=== PATIENT | female | born 1955 | race Caucasian/White ===

== ENCOUNTER 2025-03-29 21:55 | Inpatient (IN) | payer MEDICARE, OTHER, SELFPAY ==
[2025-03-29 16:13] VITALS: BP 121/90
[2025-03-29 16:37] LABS: Urine Albumin 3+ (Neg - Trace); Urine Bilirubin Negative (Negative); Urine Character Clear (Clear); Urine Color Yellow; Urine Glucose Negative (Negative); Urine Ketone 1+ (Negative); Urine Leukocyte 3+ (Negative); Urine Nitrite Positive (Negative); Urine Occult Blood 4+ (Negative); Urine Urobilinogen Negative (Neg - 1+); Urine pH 6.5 (5.0-9.0)
[2025-03-29 16:44] LABS: Urine Squamous Cell 0-2 /LPF (Few)
[2025-03-29 16:45] LABS: Urine Amorphous Seen; Urine Bacteria Many (Negative); Urine White Cell >100 /HPF (0-5)
[2025-03-29 16:50] LABS: Lactic Acid 1.2 mmol/L (0.7-2.0)
[2025-03-29 16:58] LABS: ALT (SGPT) 23 U/L (0-35); AST (SGOT) 36 U/L (14-36); Albumin 3.6 g/dl (3.5-5.0); Alkaline Phosphatase 59 U/L (38-126); Blood Urea Nitrogen 46 mg/dl (7-17); Calcium 9.1 mg/dl (8.4-10.2); Carbon Dioxide 21 mmol/L (22-30); Chloride 104 mmol/L (98-107); Glucose 132 mg/dl (70-99); Potassium 3.7 mmol/L (3.5-5.1); Sodium 133 mmol/L (135-145); Total Bilirubin 0.7 mg/dl (0.2-1.3); Total Protein 6.3 g/dl (6.3-8.2); eGFR 37.03
[2025-03-29 17:01] LABS: Hemoglobin 10.6 g/dL (12.0-16.0); Mean Corp Hgb Conc. 35.3 g/dL (33.0-37.0); Mean Corpuscular Hgb 34.2 pg (27.0-31.0); Mean Corpuscular Volume 96.8 fL (81.0-99.0); Mean Platelet Volume 10.6 fL (7.4-10.4); Platelet Count 135 10^3/uL (130-400); Red Cell Dist. Width 13.2 % (11.5-14.5); White Blood Cell Count 26.4 10^3/uL (4.8-10.8)
[2025-03-29 17:06] LABS: % Basophils 0.3 % (0-2); % Immature Granulocytes 3.1 % (0-0.5); % Lymphocytes 7.2 % (20.5-51.1); % Monocytes 6.5 % (1.7-9.3); % Neutrophils 82.9 % (42.2-75.2); Absolute Basophils 0.1 10^3/uL (0-0.2); Absolute Immature Granulocytes 0.8 10^3/uL (0-0.05); Absolute Lymphocytes 1.9 10^3/uL (1.2-3.4); Absolute Monocytes 1.7 10^3/uL (0.1-0.6); Absolute Neutrophils 21.8 10^3/uL (1.4-6.5); Nucleated Red Blood Cells % 0 %
[2025-03-29 18:09] VITALS: BP 97/55
[2025-03-29 18:14] VITALS: BMI 29.0
[2025-03-29] MEDS: ROCEPHIN 1000 MG IV (18:17)
[2025-03-29] MEDS: TYLENOL 1000 MG PO (18:17)
[2025-03-29] MEDS: NSS 1000 IV (18:18)
[2025-03-29 19:00] VITALS: BP 92/60
--- NOTE | 2025-03-29 19:27 | ED.GENMED ---
History of Present Illness
General
Chief Complaint: Dehydration Symptoms
Source: patient
Exam Limitations: none
Time Seen by Provider: 03/29/25 18:01
Nursing documentation reviewed up to this point in time: agreed with
History of Present Illness
History of Present Illness:
The patient is a pleasant 69-year-old female with a past medical history of RA who comes in with complaints of 3 days of fevers and chills. Patient reports intermittent nausea and vomiting. Since yesterday, she has noticed 'pain at her right
kidney.' she denies any history of kidney stones. She denies a history of recent UTIs. She denies a history of stabbing back pain
She denies sore throat and cough. She denies rash.
Past History
Past History
ED Past Medical History: Other (RA); Negative Asthma, HTN, Hypercholesterolemia or NIDDM
ED Past Surgical History: None
Social History
Tobacco: Non-smoker
Alcohol: None
Personal:
Living: with family
Employment: Employed
Review of Systems
Review of Systems
Allergies reviewed?: Yes
All Other Systems: ROS reviewed and negative except as documented in HPI and ROS
Constitutional: Reports fever, fatigue and chills
EENT: Reports no symptoms
Respiratory: Reports no symptoms
Cardiac: Reports no symptoms
ABD/GI: Reports no symptoms
: Reports flank pain
Musculoskeletal: Reports no symptoms
Skin: Reports no symptoms
Neurological: Reports no symptoms
Endocrine: Reports no symptoms
Hematologic/Lymphatic: Reports no symptoms
Psychiatric: Reports no symptoms
Phy Exam
Physical Exam
Physical Exam:
Physical Exam
General: no apparent distress, not acutely ill
Neck: supple. no meningeal signs. normal psoterior pharynx
Heart: s1/s2 regular rate and rhythm, no murmur. equal radial pulses.
Lungs: no acute respiratory distress. clear bilaterally
Abdomen: normal bowel sounds. Right flank pain
Neuro: alert and oriented. no focal neurological deficits
Skin: no rash
Psychiatric: well kept. interactive and cooperative
Extremities: no edema. no calf tenderness. negative homans. good distal pulses
Sepsis
Sepsis Screening
Sepsis Assessment: Sepsis
Sepsis Screen
Sepsis Screen: Sepsis
Date: 03/29/25
Time: 22:16
Course
Orders/Labs/Results
Orders:
Orders
03/29/25 16:15
IV Insert/Care/Rem.- Treatment PRN
03/29/25 16:27
Complete Blood Count/With Diff Urgent
Comprehensive Metabolic Panel Urgent
Blood Culture Q20M
ANG Source: Blood/Venous
Specimen Description:
Date Specimen was Collected: 03/29/25
Time Specimen was Collected: 16:15
Comment: Urgent from separate sites. If patient screens positive for possible sepsis
03/29/25 16:29
Lactic Acid Q4H
Comment: ON ICE, CANCEL 2ND ORDER IF FIRST LACTIC ACID LEVEL <2
Urinalysis Reflex To Culture Urgent
Date Specimen was Collected: 03/29/25
Time Specimen was Collected: 16:15
Urine Microscopic Reflex Cult Urgent
Urine Culture Urgent
ANG Source: U
Specimen Description:
Date Specimen was Collected: 03/29/25
Time Specimen was Collected: 16:15
03/29/25 16:35
Blood Culture Q20M
ANG Source: Blood/Venous
Specimen Description:
Comment: Urgent from separate sites. If patient screens positive for possible sepsis
03/29/25 18:07
0.9% Sodium Chloride 1000 ml [Nss] 1,000 ml IV BOLUS
Acetaminophen [Tylenol] 1,000 mg PO NOW STA
CefTRIAXone [Rocephin] 1,000 mg IV NOW STA
03/29/25 18:08
CT Abd/pel Without Iv Or Oral Urgent
Comment:
Reason For Exam: fever, R flank pain
03/29/25 21:12
Admit/Transfer Patient As Directed
Co-Sign Provider:
Level of Care: Inpatient admission
Assign to:: IMU- Intermediate Care
Physician / Group: Eamon
Diagnosis: UTI, Nephrolithiasis
Reason for Hospitalization: UTI, Nephrolithiasis
Expected length of stay greater than two midnights?: Yes
ELOS- Estimated Length of Stay in days: 3
I certify the patient meets the requirements for IP care: Yes
PRN Pain Medication Management As Directed
May give lesser potent ordered pain med per pt: Yes
preference::
Protocol:: Medication orders for pain may be administered in a
manner that supports deferring to patient preference
when the pt is:
- Requesting an ordered lesser potent pain medication.
Least to most potent pain medications are defined
as: acetaminophen < NSAID < tramadol < opioids
(morphine, oxycodone, hydromorphone).
- Requesting a lesser dose of the same medication IF
ORDERED.
- Requesting a less intrusive route of administration
if both routes are prescribed by the provider (PO <
IV).
03/29/25 21:16
Code Status As Directed
Resuscitation Status: Full Code
03/29/25 21:22
PRN Pain Medication Management As Directed
May give lesser potent ordered pain med per pt: Yes
preference::
Protocol:: Medication orders for pain may be administered in a
manner that supports deferring to patient preference
when the pt is:
- Requesting an ordered lesser potent pain medication.
Least to most potent pain medications are defined
as: acetaminophen < NSAID < tramadol < opioids
(morphine, oxycodone, hydromorphone).
- Requesting a lesser dose of the same medication IF
ORDERED.
- Requesting a less intrusive route of administration
if both routes are prescribed by the provider (PO <
IV).
Abnormal Lab Results
03/29/25 03/29/25
16:27 16:29
WBC 26.4 H 10^3/uL
(4.8-10.8)
RBC 3.10 L 10^6/uL
(4.20-5.40)
Hgb 10.6 L g/dL
(12.0-16.0)
Hct 30.0 L %
(37.0-47.0)
MCH 34.2 H pg
(27.0-31.0)
MPV 10.6 H fL
(7.4-10.4)
Abs Immat Gran (auto) 0.8 H 10^3/uL
(0-0.05)
Absolute Neuts (auto) 21.8 H 10^3/uL
(1.4-6.5)
Absolute Monos (auto) 1.7 H 10^3/uL
(0.1-0.6)
Immature Gran % 3.1 H %
(0-0.5)
Neutrophils % 82.9 H %
(42.2-75.2)
Lymphocytes % 7.2 L %
(20.5-51.1)
Sodium 133 L mmol/L
(135-145)
Carbon Dioxide 21 L mmol/L
(22-30)
BUN 46 H mg/dl
(7-17)
Creatinine 1.5 H mg/dL
(0.6-1.0)
Glucose 132 H mg/dl
(70-99)
Urine Ketones 1+ A
(Negative)
Ur Occult Blood Reflex 4+ A
(Negative)
Urine Nitrite (Reflex) Positive A
(Negative)
Leukocyte Esterase Rfl 3+ A
(Negative)
Urine RBC 3-6 A /HPF
(0-2)
Urine WBC (Reflex) >100 A /HPF
(0-5)
Urine Bacteria (Reflex) Many A
(Negative)
Urine Albumin (Reflex) 3+ A
(Neg - Trace)
03/29/25 16:27
03/29/25 16:27
Vital Signs
Initial and Last Documented VS:
Initial Vital Signs
Temp Pulse Resp BP Pulse Ox
100.1 F 92 18 121/90 91
03/29/25 16:13 03/29/25 16:13 03/29/25 16:13 03/29/25 16:13 03/29/25 16:13
Last Documented Vital Signs
Temp Pulse Resp BP Pulse Ox
98.5 F 78 16 105/78 96
03/29/25 21:33 03/29/25 18:15 03/29/25 18:15 03/29/25 21:00 03/29/25 21:00
MDM/Problems Addressed
Differential Diagnosis Includes:
Pyelonephritis. Infected kidney stone, pneumonia
MDM/Problems Addressed:
Patient presents with acute fever and right flank pain
Chronic conditions affecting care:
Rheumatoid arthritis
Acute Exacerbation and/or Progression of Chronic Illness:
The patient denies any joint pain or joint swelling, therefore, I feel her rheumatoid arthritis is under control.
*Radiology
Radiology exam reviewed: radiology read reviewed
*Pulse Oximetry
Patient hypoxic: no
Comment: 93% on room air
*EKG
Interpreted by ED Provider?: NA
*[employer] Merch[employer] Interpretation
Rate: normal
Interpretation: normal
Rhythm: sinus
*Critical Care Note
Total Time (30-74mins, 75-104mins- exclusive of procedures): Not Applicable
Data Reviewed
Review of Other/Old Records Reveals: Discharge Summary (Discharge summary reviewed from 2019 when patient had pneumonia and sepsis)
Source: patient
ED Attending Note
-
Portions of this chart may have been created with voice recognition software.� Occasional wrong word or��sound alike� substitutions may have occurred due to the inherent limitations of voice recognition software.
Discharge Plan
Departure
Patient Disposition: Admit
Date of Disposition: 03/29/25
Time of Disposition: 19:31
Admit to: Med/Surg
Presentation/result/management discussed w/ accepting MD/DO: Hospitalist
Patient with high blood pressure during this ER visit?: No
Condition: Good
Covid-19: Not Applicable
Discharge Problem:
Fever, Right sided pyelonephritis, Calculus of right ureter
Interventions
Interventions:
*Risk Screen - Suicide Last Done: 03/29/25 18:15
*General Assessment Last Done: 03/29/25 18:15
*Neglect/Abuse Screening Last Done: 03/29/25 18:15
*ED- Fall Risk Assessment Last Done: 03/29/25 18:15
*ED COVID-19 Vaccine History Last Done: 03/29/25 18:15
ED- Cardiac Assessment Last Done: 03/29/25 18:15
ED- Neurological Assessment Last Done: 03/29/25 18:15
ED- Pulmonary Assessment Last Done: 03/29/25 18:15
[2025-03-29 20:00] VITALS: BP 96/53
[2025-03-29 21:00] VITALS: BP 105/78
--- NOTE | 2025-03-29 21:13 | EDRN ---
Dr. Knutson at bedside working on admission
--- NOTE | 2025-03-29 21:19 | HPS.HSE ---
Family Physician
-
Family Physician: Pramod Banegas
Chief Complaint
-
Chills, Flank Pain
History of Present Illness
Patient is a 69y F with PMH significant for RA and asthma who presents to ED complaining of chills and R flank pain. Patient states that her symptoms started Jason evening. She noted shaking feeling / tremulousness - though she denies feeling
cold. She had discomfort in the R 'kidney' and associated nausea / vomiting. Patient has remained in bed since Sunday evening. She has been trying to push oral fluids - but has not been eating well. She reports some urinary urgency but no
dysuria / incontinence. No noted hematuria. No diarrhea / blood stools. No prior history of kidney stones.
Medical History
Past Medical History
Past Medical History: Reports Other
Additional Past Medical History:
Rheumatoid Arthritis
Asthma
Past Surgical History: Reports Other
Additional Past Surgical History:
x 2
Appendectomy
Social History
Tobacco: Former Smoker (Quit smoking 50 years ago.)
Alcohol: None
Drug: None
Family History
Family History: Not pertinent
Allergies / Home Medications
Allergies reflects when Allergies were last updated in [facility].
Home Medications with original date entered in [facility]
Allergy/Medication List:
Allergies
Allergy/AdvReac Type Severity Reaction Status Date / Time
No Known Allergies Allergy Verified 09/27/19 12:06
Home Medications
Acidophilus 1,200 units PO TID 08/26/12
Ophelia-D 12 Hour Tablet 1 tab PO BID 08/26/12
B Complex 1 tab PO HS 08/26/12
Black Patrick Supplement 1 cap PO DAILY 08/26/12
Bromolin 1 tab PO TID 08/26/12
Centrum Silver Tablet 1 tab PO DAILY 08/26/12
FOLic ACID 1 mg PO DAILY 08/26/12
MELOXICAM 15 mg PO DAILY 08/26/12
Proventil 90 mcg inhalation PRN PRN dyspnea 08/26/12
Singulair 10 mg PO DAILY 08/26/12
budesonide-formoterol HFA 80 mcg-4.5 mcg/actuation aerosol inhaler (Symbicort) 2 puff inhalation R BID 08/26/12
infliximab 100 mg intravenous solution (Remicade) 100 mg IV .EVERY 6 WKS 09/27/19
METHOTREXATE 75 mg PO WEEKLY 03/29/25
Review of Systems
-
History Source: Patient
A 12 point ROS was completed and negative except as noted: Yes
Constitutional: Reports Fatigue and Chills (shakes / tremors); Denies Fever
EENT: Denies Sore Throat
Respiratory: Denies Cough or Trouble Breathing
Cardiac: Denies Chest Pain or Palpitations
Abdomen/GI: Reports Nausea, Vomiting and Anorexia; Denies Abdominal Pain, Diarrhea, Bloody Stools or Black Stools
: Reports Flank Pain and Urgency; Denies Dysuria, Frequency or Bleeding
Musculoskeletal: Denies Joint Pain or Edema
Neurological: Denies Dizzy or Headache
Psych: Denies Depression or Anxiety
Physical Exam
Vital Signs
Vital Signs
Temp Pulse Resp BP Pulse Ox
100.1 F 78 16 105/78 96
03/29/25 16:13 03/29/25 18:15 03/29/25 18:15 03/29/25 21:00 03/29/25 21:00
Physical Exam
General: Other (69y F in no acute distress. Not ill-appearing.)
HEENT: Moist mucous membranes and PERRLA
Respiratory: Clear; No Wheezes, Rales or Rhonchi
Cardiac: S1/S2 and Regular Rhythm; No Murmur
GI: Soft, Non Tender, Non Distended and Normal Bowel Sounds
Genito-urinary: No costovertebral tender
Musculoskeletal: No Clubbing, No Cyanosis and No Edema
Neuro: AO x 3
Laboratory Results
-
03/29/25 16:27
03/29/25 16:
Laboratory Results
Lactic Acid Cancelled 03/29/25 20:15
Total Bilirubin 0.7 mg/dl (0.2-1.3) 03/29/25 16:
AST 36 U/L (14-36) 03/29/25 16:27
ALT 23 U/L (0-35) 03/29/25 16:27
Alkaline Phosphatase 59 U/L (38-126) 03/29/25 16:27
Impression/Plan
-
A/P: Patient is a 69y F with PMH significant for RA and asthma who presents to ED complaining of shakes and flank pain since Sunday.
UTI / Pyelonephritis
Sepsis secondary to the above
R UVJ Stone with Hydronephrosis
- Admit for further evaluation and treatment.
- Patient presents with tachycardia and leukocytosis with UA indicative of infection.
- Very distal 3 mm stone on the R - no prior history per patient.
- Continue IV abx pending culture data.
- Tamsulosin, strain urine, pain control if necessary (no complaints of pain at present).
- Supportive care with IVFs, antiemetics, etc.
- Urology consulted for evaluation of UVJ stone.
Rheumatoid Arthritis
- Stable. No acute complaints at present.
- Patient cannot recall timing of her last Remicade infusion.
- Hold immunosuppressants acutely (Remicade / MTX).
Asthma without Acute Exacerbation
- Stable. Continue Symbicort. Albuterol PRN.
DVT Prophylaxis: SCDs
Code Status: Full
--- NOTE | 2025-03-29 21:52 | CON.MD ---
Consultation - Medical
-
see dictated note
pt with RA
no gu hx
72hrs of fatigue and flank pain- now with fevers and nausea
wbc elevated/ ua +/ ct shows obstructing right uvj stone
to OR for stent/ureteroscopy
risks, benefits, alternatives and disabilities reviewed
Consultation
-
Date/Time Consultation Requested: 03/29/2025 at 915 pm
Date/Time Consultation Performed: 03/29/2025 at 930 pm
Requesting Provider: ER- dr arrieta
Performing Provider: dr charles
Reason for Consultation: fever/UTI/stone
[2025-03-29 22:00] VITALS: BP 104/53
--- NOTE | 2025-03-29 22:05 | EDRN ---
Patient ambulated to the restroom and back in bed, updated patient to inform her that she will go to the OR first and then to IMU, report given to IMU nurse
[2025-03-30] VITALS (12 sets, daily range): BP systolic 98–151; BP diastolic 53–109
--- NOTE | 2025-03-30 00:28 | W.IMMPOSTOP ---
Surgical Immed Post Op Note
-
Primary Surgeon:
melvin
Assisting Surgeon:
Pre-op Diagnosis:
right ureteral stone and UTI
Post-op Diagnosis:
same
Procedure Performed:
cysto, right ureteroscopy/laser litho and stent
Anesthesia Type:
gen
Specimen / Cultures:
none
Estimated Blood Loss:
2cc
Complications:
none
Operative Findings:
to pacu in stable condition
[2025-03-30] MEDS: NSS 1000 IV ×3 (01:30→16:22)
--- NOTE | 2025-03-30 05:57 | W.PN.URO.CBU ---
Today's Communication / Plan
-
continue supportive medical care
Assessment / Plan
-
right ureteral stone and UTI
s/p ureteroscopy/laser litho and stent
pt stable
fortunately at this point no overt signs of sepsis
continue antibx
regular diet
continue curran until hematuria clears
Diagnosis
-
Date of Service: March 30, 2025
-
Patient Diagnosis:
obstructing right ureteral stone
UTI
Post Op Day:
right ureteroscopy/laser litho and stent 03/30
Subjective
-
pt asleep
no fevers or HD instability overnight
Objective
-
Vital Signs
Temp Pulse Resp BP Pulse Ox
98.0 F 68 16 100/58 95
03/30/25 03:30 03/30/25 04:01 03/30/25 04:01 03/30/25 04:01 03/30/25 04:01
Intake and Output
03/28/25 03/29/25 03/30/25
06:59 06:59 06:59
Intake Total 400 / 400
Output Total 50 / 50
Balance 350 / 350
Intake:
IV fluids (Total) 400 / 400
Normosol 400 / 400
Output:
Urine, Curran 50 / 50
Physical Exam
-
General - no acute distress
Abdomen - soft, non-tender
Genitalia - curran in place- urine davis colored
[2025-03-30 06:38] LABS: Hematocrit 26.9 % (37.0-47.0); Hemoglobin 9.6 g/dL (12.0-16.0); Mean Corp Hgb Conc. 35.7 g/dL (33.0-37.0); Mean Corpuscular Hgb 35.4 pg (27.0-31.0); Mean Corpuscular Volume 99.3 fL (81.0-99.0); Mean Platelet Volume 10.9 fL (7.4-10.4); Platelet Count 103 10^3/uL (130-400); Red Blood Cell Count 2.71 10^6/uL (4.20-5.40); Red Cell Dist. Width 13.5 % (11.5-14.5)
[2025-03-30 06:48] LABS: Blood Urea Nitrogen 41 mg/dl (7-17); Calcium 7.8 mg/dl (8.4-10.2); Carbon Dioxide 20 mmol/L (22-30); Chloride 112 mmol/L (98-107); Estimated Creatinine Clearance 34 ml/min; Glucose 137 mg/dl (70-99); Potassium 4.2 mmol/L (3.5-5.1); Sodium 137 mmol/L (135-145); eGFR 48.39
--- NOTE | 2025-03-30 08:04 | W.PN.HOSP.TC ---
Today's Communication/Plan
-
Bacteremia -- continue Cefepime
See plan
Assessment / Plan
Assessment / Plan
Physical Exam
General: Other (69y F in no acute distress. Not ill-appearing.)
HEENT: Moist mucous membranes
Respiratory: Clear; No Wheezes, Rales or Rhonchi
Cardiac: S1/S2 and Regular Rhythm
GI: Soft, Non Tender, Non Distended and Normal Bowel Sounds
Genito-urinary: No costovertebral tender
Musculoskeletal: No Cyanosis and No Edema
Neuro: AO x 3
Assessment/Plan
69y F with PMH significant for RA and asthma who presents to ED complaining of chills and R flank pain. Patient states that her symptoms started Sunday evening. She noted shaking feeling / tremulousness - though she denies feeling cold. She
had discomfort in the R 'kidney' and associated nausea / vomiting. Patient has remained in bed since Sunday evening. She has been trying to push oral fluids - but has not been eating well. She reports some urinary urgency but no dysuria /
incontinence. No noted hematuria. No diarrhea / blood stools. No prior history of kidney stones.
Presentation with shakes and flank pain since 03/27/25
UTI / Pyelonephritis
Sepsis secondary to the above
R UVJ Stone with Hydronephrosis
Bacteremia
- Patient presented with tachycardia and leukocytosis with UA indicative of infection.
- Very distal 3 mm stone on the R - no prior history per patient.
- Continue Cefepime, follow blood cultures which are positive so far
- Urology consulted for evaluation of UVJ stone s/p ureteroscopy/laser litho and stent placement on 03/29/25
Rheumatoid Arthritis
- Stable. No acute complaints at present.
- Patient cannot recall timing of her last Remicade infusion.
- Hold immunosuppressants acutely (Remicade / MTX).
Asthma without Acute Exacerbation
- Stable. Continue Symbicort. Albuterol PRN.
DVT Prophylaxis: SCDs. Heparin subq.
Code Status: Full
Anticipated Discharge: > 48 hours
Subjective/Interval History
-
Date of Service: March 30, 2025
Patient was seen and examined. She reported feeling better and less weak today.
Objective Data
-
Labs:
Laboratory Results
03/30/25
06:10
WBC 21.0 H
Hgb 9.6 L
Hct 26.9 L
Plt Count 103 L D
Sodium 137
Potassium 4.2
Chloride 112 H
Carbon Dioxide 20 L
BUN 41 H
Creatinine 1.2 H
Glucose 137 H
Calcium 7.8 L
Vital Signs:
Vital Signs
Temp Pulse Resp BP Pulse Ox
98.4 F 68 16 100/58 95
03/30/25 07:57 03/30/25 04:01 03/30/25 04:01 03/30/25 04:01 03/30/25 04:01
I&O
03/29/25 03/30/25 03/31/25
06:59 06:59 06:59
Intake Total 400 / 400
Output Total 50 / 50
Balance 350 / 350
[2025-03-30] MEDS: FOLVITE 1 MG PO (08:28)
[2025-03-30] MEDS: SINGULAIR 10 MG PO (08:28)
[2025-03-30] MEDS: FLOMAX 0.4 MG PO (08:28)
--- NOTE | 2025-03-30 08:48 | PTCARENOTE ---
Pt AAOx3 offering no complaints. States she feels much better. NSS 125hr , Penn in place draining brittany urine.
[2025-03-30] MEDS: MAXIPIME 2000 MG IV ×2 (09:52→21:09)
[2025-03-30] MEDS: STERILE WATER FOR INJECTION 10 ML IV ×2 (09:52→21:09)
--- NOTE | 2025-03-30 09:59 | CON.ID ---
Consultation
-
Date/Time Consultation Requested: 03/30/2025 0835
Date/Time Consultation Performed: 03/30/2025 0956
Requesting Provider: Dr. Montana
Performing Provider: Dr. Main
Reason for Consultation: Bacteremia
Chief Complaint / Past History
History of Present Illness
Brooke King is a 69-year-old female being evaluated at the request of Dr. Montana regarding bacteremia and obstructive uropathy. History is obtained from chart review, along with patient interview.
The patient has a significant past medical history only for rheumatoid arthritis and presented to [facility] ER on 03/29 with complaints of right flank pain and chills beginning approximately 48 hours earlier. She admits to shaking and
feeling tremulousness. She reports that she tried to push fluids, but was having a difficult time. She states she stayed in bed for most of the weekend, but ultimately she came to the hospital for further workup when she did not begin to feel
better. Here she was found to have a marked leukocytosis, and CT imaging hydronephrosis secondary to a 3 mm right UVJ stone. The patient was taken to the OR by Urology, and she underwent ureteroscopy and laser lithotripsy with stent placement.
Blood cultures obtained at the time of admission are now positive for gram-negative rods, and Infectious Diseases asked to comment on further antimicrobial therapy.
At the present time she denies any fevers or chills. She denies any back pain or flank pain. She denies any dysuria
Past History
Additional Past Medical History:
Rheumatoid arthritis
Asthma
Additional Past Surgical History:
x 2
Appendectomy
Allergy History:
No Known Allergies Allergy (Verified 09/27/19 12:06)
Medications Reviewed: Yes
Current Antibiotics:
Cefepime 2 g IV every 12 hours
Ceftriaxone discontinued
Social History
Tobacco: Former Smoker (Remote)
Alcohol: None
Drug: None
Review of Systems
Vital Signs
Temp Pulse Resp BP Pulse Ox
98.4 F 68 16 100/58 95
03/30/25 07:57 03/30/25 04:01 03/30/25 04:01 03/30/25 04:01 03/30/25 04:01
Physical Exam
Physical Exam
Constitutional: No Acute Distress, Comfortable and Non-toxic
Eyes: No Conjunctival Hemorrhage and Sclera Anicteric
Cardiovascular: Regular Rate and S1/S2; Negative S3/S4
Pulmonary: Clear and Non Labored
Gastrointestinal: Soft, Non Tender, Non Distended and Normal Bowel Sounds
Genito-Urinary: Penn, Turbid Urine (Slightly cloudy) and Hematuria (Trace)
Extremities: Negative Edema, Cyanosis or Erythema
Neurological: Awake and Alert
Psychological: Calm
.
Lab / Diagnostic Study Results
03/30/25 06:10
03/30/25 06:10
Abs Immat Gran (auto) 0.8 10^3/uL (0-0.05) H 03/29/25 16:27
Absolute Neuts (auto) 21.8 10^3/uL (1.4-6.5) H 03/29/25 16:27
Absolute Lymphs (auto) 1.9 10^3/uL (1.2-3.4) 03/29/25 16:27
Absolute Monos (auto) 1.7 10^3/uL (0.1-0.6) H 03/29/25 16:27
Absolute Basos (auto) 0.1 10^3/uL (0-0.2) 03/29/25 16:27
Immature Gran % 3.1 % (0-0.5) H 03/29/25 16:27
Neutrophils % 82.9 % (42.2-75.2) H 03/29/25 16:27
Lymphocytes % 7.2 % (20.5-51.1) L 03/29/25 16:27
Monocytes % 6.5 % (1.7-9.3) 03/29/25 16:27
Eosinophils % 0.0 % (0-6) 03/29/25 16:27
Basophils % 0.3 % (0-2) 03/29/25 16:27
Lactic Acid Cancelled 03/29/25 20:15
Ur Squamous Epith Cells 0-2 /LPF (Few) 03/29/25 16:29
Microbiology Results
Micro:
03/30/25 09:50 Blood Culture - Pending
Blood/Venous
03/30/25 09:09 Blood Culture - Pending
Blood/Venous
03/29/25 16:27 Blood Culture - Preliminary
Blood/Venous Positive culture in progress
Gram Stain - Final
03/29/25 16:29 Urine Culture - Pending
Urine
Imaging:
03/29/2025 CT abdomen/pelvis without contrast: The unenhanced liver, spleen, gallbladder and pancreas are unremarkable. The adrenal glands and kidneys are unremarkable aside from mild right hydronephrosis due to a right UVJ stone measuring 3 mm.
There is also a 1 mm nonobstructing right renal stone.. The abdominal aorta is normal caliber. There is mild atherosclerotic vascular disease. No significant lymphadenopathy is noted. Bowel loops are normal caliber. The terminal ileum and appendix
are within normal limits. There is mild diverticulosis.
Assessment / Plan
Obstructive uropathy
Bacteremia with GNR
Complicated urinary tract infection; suspected pyelonephritis
Leukocytosis
IRISH
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
Rheumatoid arthritis (on Remicade)
Hx asthma
Recommendations:
Continue with cefepime for the present.
Repeat blood cultures have been ordered.
Await further culture data to guide further antimicrobial selection and potential de-escalation.
Follow white count and temperature curve.
Further recommendations as additional data is returned.
[2025-03-30] MEDS: ProAIR HFA INHALER 2 PUFF INH (14:37)
[2025-03-30] MEDS: OSCAL CAL 500 500 MG PO ×2 (14:46→21:08)
--- NOTE | 2025-03-30 15:24 | PTCARENOTE ---
Pt to 2136 after giving report to [address] nurse. Son and at bedside.
--- NOTE | 2025-03-30 15:29 | PTCARENOTE ---
Pt ias AAOx3 with Nss at 125hr. Penn in place. was here, Inhaler oder recieved.
--- NOTE | 2025-03-30 16:29 | CM ---
Patient with Dx right ureteral stone and UTI s/p ureteroscopy/laser litho and stent. O2 2L. Receiving IVF, IV Abx. Curran. Per nurse; A/O, assist of 1.
Attempted to speak with patient who was unavailable.
Spoke with patient's Jose Luis;
the patient resides with her in a 2 story house with 2 ZAHRA.
The patient was independent in ADLs and ambulation.
The patient has no DME, prior VN or SNF.
PCP - Pramod Banegas
Pharmacy - [facility]
Unless patient is discharged with curran, agrees no need for nurse.
Plan home.
--- NOTE | 2025-03-30 18:43 | PTCARENOTE ---
Al urine strained today . nothing noted
[2025-03-30] MEDS: HEPARIN 5000 UNITS SC (21:08)
--- NOTE | 2025-03-30 22:57 | PTCARENOTE ---
pt aaox3, able to make needs known. Penn in place, urine remains yellow and blood tinged. NS@125ml/hr through L forearm IV. Remains on IV cefepime. Weaned to room air, SaO2 94% on RA. VSS. Care ongoing.
[2025-03-31] VITALS (12 sets, daily range): BP systolic 112–151; BP diastolic 62–82
[2025-03-31] MEDS: NSS 1000 IV ×2 (00:18→08:03)
[2025-03-31 05:05] LABS: % Basophils 0.2 % (0-2); % Immature Granulocytes 0.7 % (0-0.5); % Lymphocytes 12.3 % (20.5-51.1); % Monocytes 5.7 % (1.7-9.3); % Neutrophils 81.1 % (42.2-75.2); Absolute Immature Granulocytes 0.2 10^3/uL (0-0.05); Absolute Lymphocytes 2.7 10^3/uL (1.2-3.4); Absolute Monocytes 1.2 10^3/uL (0.1-0.6); Absolute Neutrophils 17.8 10^3/uL (1.4-6.5); Hematocrit 28.3 % (37.0-47.0); Hemoglobin 9.8 g/dL (12.0-16.0); Mean Corp Hgb Conc. 34.6 g/dL (33.0-37.0); Mean Corpuscular Hgb 34.3 pg (27.0-31.0); Mean Platelet Volume 11.7 fL (7.4-10.4); Nucleated Red Blood Cells % 0 %; Platelet Count 128 10^3/uL (130-400); Red Blood Cell Count 2.86 10^6/uL (4.20-5.40); Red Cell Dist. Width 13.6 % (11.5-14.5); White Blood Cell Count 21.9 10^3/uL (4.8-10.8)
[2025-03-31 05:24] LABS: Albumin 3.1 g/dl (3.5-5.0); Blood Urea Nitrogen 21 mg/dl (7-17); Calcium 8.6 mg/dl (8.4-10.2); Carbon Dioxide 21 mmol/L (22-30); Chloride 113 mmol/L (98-107); Estimated Creatinine Clearance 51 ml/min; Glucose 113 mg/dl (70-99); Potassium 4.1 mmol/L (3.5-5.1); Sodium 139 mmol/L (135-145); eGFR > 60.00
[2025-03-31] MEDS: FLOMAX 0.4 MG PO (08:03)
[2025-03-31] MEDS: SINGULAIR 10 MG PO (08:03)
[2025-03-31] MEDS: OSCAL CAL 500 500 MG PO ×2 (08:03→19:28)
[2025-03-31] MEDS: HEPARIN 5000 UNITS SC ×2 (08:03→19:28)
[2025-03-31] MEDS: FOLVITE 1 MG PO (08:03)
--- NOTE | 2025-03-31 08:44 | W.PN.URO.CBU ---
Today's Communication / Plan
-
curran out
antibx- await final cx results and ID plan
Assessment / Plan
-
right ureteral stone and UTI/proteus bacteremia
s/p ureteroscopy/laser litho and stent
pt stable
fortunately at this point no overt signs of sepsis
continue antibx- ID consulted
remove curran
outpt f/u after discharge to remove stent
Diagnosis
-
Date of Service: March 31, 2025
-
Patient Diagnosis:
obstructing right ureteral stone
UTI
Post Op Day:
right ureteroscopy/laser litho and stent 03/30
Subjective
-
pt feels better
afebrile/vss
blood cx + for proteus
urine clear from curran
Objective
-
Vital Signs
Temp Pulse Resp BP Pulse Ox
98.0 F 72 28 149/82 94
03/31/25 03:40 03/31/25 06:00 03/31/25 06:00 03/31/25 06:00 03/31/25 06:00
Intake and Output
03/30/25 03/31/25 04/01/25
06:59 06:59 06:59
Intake Total 400 / 400 1500 / 1500
Output Total 50 / 50 3350 / 3350
Balance 350 / 350 -1850 / -1850
Intake:
IV fluids (Total) 400 / 400 1500 / 1500
Normosol 400 / 400
Output:
Urine, Curran 50 / 50 3350 / 3350
Laboratory Results
03/31/25 04:40
03/31/25 04:40
Review of Systems
-
Constitutional: Fatigue
Respiratory: No Symptoms
Cardiac: No Symptoms
Abdomen/GI: No Symptoms
Physical Exam
-
General - no acute distress
Abdomen - soft, non-tender
Genitalia - curran in place/urine clear
--- NOTE | 2025-03-31 10:45 | W.PN.ID1 ---
Date of Service
Date of Service: March 31, 2025
Today's Communication
Continue antibiotics.
Assessment / Plan
Obstructive uropathy
Bacteremia with Proteus species
Complicated urinary tract infection; suspected pyelonephritis
Leukocytosis
IRISH; improved
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
Rheumatoid arthritis (on Remicade)
Hx asthma
Recommendations:
Continue with cefepime for the present.
Repeat blood cultures have been ordered.
Await further culture data to guide further antimicrobial selection and potential de-escalation.
Follow white count and temperature curve.
����������������������������������������������������������
Chief Complaint
-: UTI and Bacteremia
Subjective / Review of Systems
Patient seen and examined. Reports some irritation from the Penn catheter.
Review of Systems: No Fever and No Chills
Vital Signs / Physical Exam
Vital Signs
Vital Signs
Temp Pulse Resp BP Pulse Ox
98 F 65 25 144/75 93
03/31/25 07:05 03/31/25 08:00 03/31/25 08:00 03/31/25 08:00 03/31/25 08:00
Physical Exam
Constitutional: No Acute Distress, Comfortable and Non-toxic
Eyes: Sclera Anicteric
Cardiovascular: S1/S2; Negative S3/S4
Pulmonary: Clear; Negative Wheezes or Rales
Gastrointestinal: Soft and Non Tender
Genito-Urinary: Penn and Clear Urine; Negative Turbid Urine or Hematuria
Extremities: Negative Edema, Cyanosis or Erythema
Objective Data
Lab Data
Lab Results
03/31/25 04:40
03/31/25 04:40
Estimated Creat Clear 51 ml/min 03/31/25 04:40
Lactic Acid Cancelled 03/29/25 20:15
Total Bilirubin 0.7 mg/dl (0.2-1.3) 03/29/25 16:27
AST 36 U/L (14-36) 03/29/25 16:27
ALT 23 U/L (0-35) 03/29/25 16:27
Alkaline Phosphatase 59 U/L (38-126) 03/29/25 16:27
Most recent labs reviewed.
Micro Results:
03/30/25 09:50 Blood Culture - Preliminary
Blood/Venous No Growth in 24 hours- Final report to follow
03/29/25 16:27 Blood Culture - Preliminary
Blood/Venous Proteus species
Gram Stain - Final
03/30/25 09:09 Blood Culture - Preliminary
Blood/Venous No Growth in 24 hours- Final report to follow
03/31/25 04:40 Blood Culture - Pending
Blood/Venous
03/29/25 16:29 Urine Culture - Pending
Urine
Imaging:
03/29/2025 CT abdomen/pelvis without contrast: The unenhanced liver, spleen, gallbladder and pancreas are unremarkable. The adrenal glands and kidneys are unremarkable aside from mild right hydronephrosis due to a right UVJ stone measuring 3 mm.
There is also a 1 mm nonobstructing right renal stone.. The abdominal aorta is normal caliber. There is mild atherosclerotic vascular disease. No significant lymphadenopathy is noted. Bowel loops are normal caliber. The terminal ileum and appendix
are within normal limits. There is mild diverticulosis.
[2025-03-31] MEDS: STERILE WATER FOR INJECTION 10 ML IV ×2 (10:49→21:00)
[2025-03-31] MEDS: MAXIPIME 2000 MG IV ×2 (10:49→21:00)
--- NOTE | 2025-03-31 14:18 | W.PN.HOSP.TC ---
Today's Communication/Plan
-
Continue Cefepime
Follow repeat blood cultures
Penn taken out today
Assessment / Plan
Assessment / Plan
Physical Exam
General: Other (69y F in no acute distress. Not ill-appearing.)
HEENT: Moist mucous membranes
Respiratory: Clear; No Wheezes, Rales or Rhonchi
Cardiac: S1/S2 and Regular Rhythm
GI: Soft, Non Tender, Non Distended and Normal Bowel Sounds
Genito-urinary: No costovertebral tender
Musculoskeletal: No Cyanosis and No Edema
Neuro: AO x 3
Assessment/Plan
69y F with PMH significant for RA and asthma who presents to ED complaining of chills and R flank pain. Patient states that her symptoms started Sunday evening. She noted shaking feeling / tremulousness - though she denies feeling cold. She
had discomfort in the R 'kidney' and associated nausea / vomiting. Patient has remained in bed since Sunday evening. She has been trying to push oral fluids - but has not been eating well. She reports some urinary urgency but no dysuria /
incontinence. No noted hematuria. No diarrhea / blood stools. No prior history of kidney stones.
Presentation with shakes and flank pain since 03/27/25
UTI / Pyelonephritis
Sepsis secondary to the above
R UVJ Stone with Hydronephrosis
Bacteremia
- Patient presented with tachycardia and leukocytosis with UA indicative of infection.
- Very distal 3 mm stone on the R - no prior history per patient.
- Continue Cefepime, follow initial blood cultures which are positive so far, repeat blood cultures with NGTD/pending
- Urology consulted for evaluation of UVJ stone s/p ureteroscopy/laser litho and stent placement on 03/29/25
- Penn has been taken out on 03/31/25
- Follow-up with Dr. Marco Johnson outpatient
IRISH secondary to obstruction
- Resolved
Rheumatoid Arthritis
- Stable. No acute complaints at present.
- Patient cannot recall timing of her last Remicade infusion.
- Hold immunosuppressants acutely (Remicade / MTX).
Asthma without Acute Exacerbation
- Stable. Continue Symbicort. Albuterol PRN.
DVT Prophylaxis: SCDs. Heparin subq.
Code Status: Full Code
Anticipated Discharge: > 48 hours
Subjective/Interval History
-
Date of Service: March 31, 2025
Patient was seen and examined. She reported doing okay and denied any new symptoms or complaints.
Objective Data
-
Labs:
Laboratory Results
03/31/25
04:40
WBC 21.9 H
Hgb 9.8 L
Hct 28.3 L
Plt Count 128 L D
Sodium 139
Potassium 4.1
Chloride 113 H
Carbon Dioxide 21 L
BUN 21 H
Creatinine 0.8
Glucose 113 H
Calcium 8.6
Vital Signs:
Vital Signs
Temp Pulse Resp BP Pulse Ox
98 F 68 19 124/62 99
03/31/25 07:05 03/31/25 14:00 03/31/25 14:00 03/31/25 14:00 03/31/25 14:12
I&O
03/30/25 03/31/25 04/01/25
06:59 06:59 06:59
Intake Total 400 / 400 1500 / 1500
Output Total 50 / 50 3350 / 3350
Balance 350 / 350 -1850 / -1850
[2025-03-31] MEDS: Pyridium 100 MG PO ×2 (17:47→22:50)
[2025-03-31] MEDS: FLUSH (NSS) 4 FLUSH IV (21:01)
--- NOTE | 2025-03-31 23:23 | PTCARENOTE ---
ax3 ambulates to br without difficulty for frequent voiding but adequate emptying of bladder as evidenced by bladder scan. urine now orange from Pyridium. sinus afebrile bp wnl
[2025-04-01] VITALS (8 sets, daily range): BP systolic 115–149; BP diastolic 53–78
--- NOTE | 2025-04-01 04:20 | DOWNTIME ---
Addendum entered and electronically signed by Waldo Huynh RN 04/01/25 14:21:
Correction: Downtime was 04/01/2025 from 0100 to 04/01/2025 at 0415
Original Note:
There was a [employer] Client Filler Room Attendant Downtime on 03/31/2025 from 0100 to 04/01/2025 at 0415. Downtime documentation of patient's care, including medication administrations, has been reconciled in the electronic record per guidelines. Refer to the
patient's paper chart under the miscellaneous tab to see printed paper medication records and downtime forms.
[2025-04-01 05:30] LABS: % Basophils 0.3 % (0-2); % Eosinophils 0.3 % (0-6); % Immature Granulocytes 0.9 % (0-0.5); % Lymphocytes 19.2 % (20.5-51.1); % Monocytes 10.1 % (1.7-9.3); % Neutrophils 69.2 % (42.2-75.2); Absolute Basophils 0.1 10^3/uL (0-0.2); Absolute Immature Granulocytes 0.1 10^3/uL (0-0.05); Absolute Monocytes 1.6 10^3/uL (0.1-0.6); Hematocrit 25.7 % (37.0-47.0); Hemoglobin 9.5 g/dL (12.0-16.0); Mean Corpuscular Hgb 34.9 pg (27.0-31.0); Mean Corpuscular Volume 94.5 fL (81.0-99.0); Mean Platelet Volume 11.1 fL (7.4-10.4); Nucleated Red Blood Cells % 0 %; Platelet Count 159 10^3/uL (130-400); Red Blood Cell Count 2.72 10^6/uL (4.20-5.40); White Blood Cell Count 15.8 10^3/uL (4.8-10.8)
[2025-04-01 05:51] LABS: Blood Urea Nitrogen 13 mg/dl (7-17); Calcium 8.6 mg/dl (8.4-10.2); Carbon Dioxide 22 mmol/L (22-30); Chloride 110 mmol/L (98-107); Estimated Creatinine Clearance 58 ml/min; Glucose 90 mg/dl (70-99); Potassium 3.5 mmol/L (3.5-5.1); Sodium 137 mmol/L (135-145); eGFR > 60.00
[2025-04-01] MEDS: FOLVITE 1 MG PO (07:53)
[2025-04-01] MEDS: HEPARIN 5000 UNITS SC ×2 (07:53→20:03)
[2025-04-01] MEDS: SINGULAIR 10 MG PO (07:53)
[2025-04-01] MEDS: FLOMAX 0.4 MG PO (07:53)
[2025-04-01] MEDS: Pyridium 100 MG PO ×2 (07:53→15:52)
--- NOTE | 2025-04-01 09:46 | W.PN.ID1 ---
Date of Service
Date of Service: April 01, 2025
Today's Communication
Transition to cefazolin.
Assessment / Plan
Obstructive uropathy
Bacteremia with Proteus species
Complicated urinary tract infection; suspected pyelonephritis
Leukocytosis
IRISH; improved
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
Rheumatoid arthritis (on Remicade)
Hx asthma
Recommendations:
Urine culture with Proteus mirabilis. Isolate is susceptible to cefazolin.
Narrow to cefazolin 2 g IV every 8 hours
Follow white count and temperature curve.
����������������������������������������������������������
Chief Complaint
-: UTI and Bacteremia
Subjective / Review of Systems
Review of Systems: No Fever, No Chills and No Abdominal Pain
Vital Signs / Physical Exam
Vital Signs
Vital Signs
Temp Pulse Resp BP Pulse Ox
98 F 75 19 149/78 98
04/01/25 03:23 04/01/25 08:00 04/01/25 08:00 04/01/25 07:50 04/01/25 09:41
Physical Exam
Constitutional: No Acute Distress, Comfortable and Non-toxic
Eyes: Sclera Anicteric
Cardiovascular: S1/S2; Negative S3/S4
Pulmonary: Non Labored
Gastrointestinal: Soft, Non Tender, Non Distended, Normal Bowel Sounds, No Rebound and No Guarding
Genito-Urinary: Negative Penn, Suprapubic Tenderness or CVA Tenderness
Extremities: Negative Edema, Cyanosis or Erythema
Neurological: Awake and Alert
Psychological: Calm
Objective Data
Lab Data
Lab Results
04/01/25 05:03
04/01/25 05:03
Estimated Creat Clear 58 ml/min 04/01/25 05:03
Lactic Acid Cancelled 03/29/25 20:15
Total Bilirubin 0.7 mg/dl (0.2-1.3) 03/29/25 16:27
AST 36 U/L (14-36) 03/29/25 16:27
ALT 23 U/L (0-35) 03/29/25 16:27
Alkaline Phosphatase 59 U/L (38-126) 03/29/25 16:27
Most recent labs reviewed.
Micro Results:
03/30/25 09:09 Blood Culture - Preliminary
Blood/Venous No Growth in 48 hours- Final report to follow
03/29/25 16:27 Blood Culture - Final
Blood/Venous Proteus mirabilis
Gram Stain - Final
03/31/25 04:40 Blood Culture - Preliminary
Blood/Venous No Growth in 24 hours- Final report to follow
03/29/25 16:29 Urine Culture - Final
Urine
03/30/25 09:50 Blood Culture - Preliminary
Blood/Venous No Growth in 24 hours- Final report to follow
Blood Culture Final 03/29/25-1627
Positive for Proteus species.
Performed by BIOFIRE PCR methodology.
Proteus mirabilis
Organism 1 Proteus mirabilis
1. Proteus mirabilis
M.I.C. RX
--------- ---
Amoxicillin/Potas. Clavulanate <=8/4 S
Ampicillin <=8 S
Ampicillin/Sulbactam <=4/2 S
Aztreonam <=4 S
Cefazolin <=2 S
Ertapenem <=0.5 S
Ciprofloxacin <=0.25 S
Gentamicin <=2 S
Meropenem <=1 S
Piperacillin/Tazobactam <=8 S
Tetracycline >8 R
Tobramycin <=2 S
Trimethoprim/Sulfamethoxazole <=2/38 S
Imaging:
03/29/2025 CT abdomen/pelvis without contrast: The unenhanced liver, spleen, gallbladder and pancreas are unremarkable. The adrenal glands and kidneys are unremarkable aside from mild right hydronephrosis due to a right UVJ stone measuring 3 mm.
There is also a 1 mm nonobstructing right renal stone.. The abdominal aorta is normal caliber. There is mild atherosclerotic vascular disease. No significant lymphadenopathy is noted. Bowel loops are normal caliber. The terminal ileum and appendix
are within normal limits. There is mild diverticulosis.
--- NOTE | 2025-04-01 10:15 | PTCARENOTE ---
Assumed care of patient at beginning of this shift from previous RN. Patient voiding in bathroom, orange urine, without difficulty. Seen by ID and switched to cefazolin; see updated orders. NSR on monitor; BP 135/78. POx 96-98% on RA. See worklist
for full assessment and vital signs.
[2025-04-01] MEDS: ANCEF 10 IV ×2 (11:19→17:42)
--- NOTE | 2025-04-01 12:37 | W.PN.HOSP.TC ---
Today's Communication/Plan
-
Antibiotics changed to Cefazolin -- continue
Follow blood cultures
Transfer to telemetry
Assessment / Plan
Assessment / Plan
Physical Exam
General: Other (69y F in no acute distress. Not ill-appearing.)
HEENT: Moist mucous membranes
Respiratory: Clear; No Wheezes, Rales or Rhonchi
Cardiac: S1/S2 and Regular Rhythm
GI: Soft, Non Tender, Non Distended and Normal Bowel Sounds
Musculoskeletal: No Cyanosis and No Edema
Neuro: AO x 3
Assessment/Plan
69y F with PMH significant for RA and asthma who presents to ED complaining of chills and R flank pain. Patient states that her symptoms started Jason evening. She noted shaking feeling / tremulousness - though she denies feeling cold. She
had discomfort in the R 'kidney' and associated nausea / vomiting. Patient has remained in bed since Sunday evening. She has been trying to push oral fluids - but has not been eating well. She reports some urinary urgency but no dysuria /
incontinence. No noted hematuria. No diarrhea / blood stools. No prior history of kidney stones.
Presentation with shakes and flank pain since 03/27/25
UTI / Pyelonephritis
Sepsis secondary to the above
R UVJ Stone with Hydronephrosis
Proteus mirabilis Bacteremia
- Patient presented with tachycardia and leukocytosis with UA indicative of infection.
- Very distal 3 mm stone on the R - no prior history per patient.
- Completed a few days of Cefepime. Now on Cefazolin -- continue Cefazolin. Initial blood cultures with Proteus, repeat blood cultures with NGTD
- Urology consulted for evaluation of UVJ stone s/p ureteroscopy/laser litho and stent placement on 03/29/25
- Penn has been taken out on 03/31/25
- Follow-up with Dr. Marco Johnson outpatient
IRISH secondary to obstruction
- Resolved
Rheumatoid Arthritis
- Stable. No acute complaints at present.
- Patient cannot recall timing of her last Remicade infusion.
- Hold immunosuppressants acutely (Remicade / MTX).
Asthma without Acute Exacerbation
- Stable. Continue Symbicort. Albuterol PRN.
DVT Prophylaxis: SCDs. Heparin subq.
Code Status: Full Code
Anticipated Discharge: 24 - 48 hours
Subjective/Interval History
-
Date of Service: April 01, 2025
Patient was seen and examined. She reported feeling fine, denied any new symptoms or complaints.
Objective Data
-
Labs:
Laboratory Results
04/01/25
05:03
WBC 15.8 H
Hgb 9.5 L
Hct 25.7 L
Plt Count 159 D
Sodium 137
Potassium 3.5
Chloride 110 H
Carbon Dioxide 22
BUN 13
Creatinine 0.7
Glucose 90
Calcium 8.6
Vital Signs:
Vital Signs
Temp Pulse Resp BP Pulse Ox
99.2 F 75 19 149/78 98
04/01/25 07:05 04/01/25 08:00 04/01/25 08:00 04/01/25 07:50 04/01/25 09:41
I&O
03/31/25 04/01/25 04/02/25
06:59 06:59 06:59
Intake Total 1500 / 1500 280 / 280
Output Total 3350 / 3350 1850 / 1850 600 / 600
Balance -1850 / -1850 -1570 / -1570 -600 / -600
--- NOTE | 2025-04-01 17:24 | CM ---
Patient with Dx right ureteral stone and UTI s/p ureteroscopy/laser litho and stent. Room air. Receiving IV Abx. Penn discontinued yesterday. Per nurse; ambulatory in room.
CM continuing to follow.
Plan home.
[2025-04-02] VITALS (7 sets, daily range): BP systolic 125–145; BP diastolic 69–75
[2025-04-02] MEDS: Pyridium 100 MG PO ×3 (01:57→15:07)
[2025-04-02] MEDS: ANCEF 10 IV ×3 (01:57→17:06)
[2025-04-02 07:50] LABS: Blood Urea Nitrogen 9 mg/dl (7-17); Calcium 8.7 mg/dl (8.4-10.2); Carbon Dioxide 29 mmol/L (22-30); Chloride 105 mmol/L (98-107); Estimated Creatinine Clearance 58 ml/min; Glucose 136 mg/dl (70-99); Potassium 3.3 mmol/L (3.5-5.1); Sodium 138 mmol/L (135-145); eGFR > 60.00
--- NOTE | 2025-04-02 07:52 | PN.CDI ---
CDI
- -
CDI:
Physician Documentation Request
Admit Date: 03/29/25 21:55
Dear Doctor Nan,
Please review the following and provide your response in the progress notes.
Clinical Indicators:
PN, 04/01
#UTI / Pyelonephritis
#Sepsis secondary to the above
#...IRISH secondary to obstruction
Please clarify which of the following most accurately describes the status of the patient's infection:
Severe sepsis with associated acute organ dysfunction(please document organ dysfunction
Sepsis only
Other(please specify)
Sepsis
- Systemic manifestations of infection, with 2 or more SIRS criteria which include:
- Fever >100.9 degrees F or hypothermia < 96.8 degrees F
- Leukocytosis - WBC > 12,000 or leukopenia - WBC < 4,000 or > 10% bands
- Tachycardia > 90 beats per minute
- Tachypnea - RR > 20 breaths per minute or PaCO2 , 32mmHg
Source: Merck Manual 2013
- Indicate the known or suspected underlying infection, such as UTI, pneumonia or cellulitis
Severe Sepsis
- Sepsis with associated acute organ dysfunction, such as renal or respiratory failure
- Documentation should indicate the association between the sepsis and the organ dysfunction
Use of terms such as suspected, likely, concern for, or probable (associated with a specific diagnosis that is being evaluated, monitored, or treated as if it exists) are acceptable and can be coded in the inpatient setting, when documented at the
time of discharge.
Thank you,
Angelina Beckwith RN BSN CCDS
CDI Specialist
Please contact via tiger text
Please use your independent medical judgment in providing your response.
[2025-04-02 08:11] LABS: % Basophils 0.2 % (0-2); % Eosinophils 0.7 % (0-6); % Immature Granulocytes 3.3 % (0-0.5); % Lymphocytes 21.7 % (20.5-51.1); % Neutrophils 58.1 % (42.2-75.2); Absolute Eosinophils 0.1 10^3/uL (0-0.7); Absolute Immature Granulocytes 0.4 10^3/uL (0-0.05); Absolute Lymphocytes 2.7 10^3/uL (1.2-3.4); Absolute Neutrophils 7.1 10^3/uL (1.4-6.5); Hemoglobin 10.2 g/dL (12.0-16.0); Mean Corp Hgb Conc. 35.2 g/dL (33.0-37.0); Mean Corpuscular Hgb 34.3 pg (27.0-31.0); Mean Corpuscular Volume 97.6 fL (81.0-99.0); Mean Platelet Volume 11.3 fL (7.4-10.4); Nucleated Red Blood Cells % 0 %; Platelet Count 200 10^3/uL (130-400); Red Blood Cell Count 2.97 10^6/uL (4.20-5.40); Red Cell Dist. Width 13.6 % (11.5-14.5); White Blood Cell Count 12.2 10^3/uL (4.8-10.8)
[2025-04-02] MEDS: FOLVITE 1 MG PO (09:10)
[2025-04-02] MEDS: FLOMAX 0.4 MG PO (09:10)
[2025-04-02] MEDS: SINGULAIR 10 MG PO (09:10)
[2025-04-02] MEDS: HEPARIN 5000 UNITS SC ×2 (09:10→20:46)
--- NOTE | 2025-04-02 09:47 | CM ---
Patient seen at bedside
Cont IV antibiotic
PLAN: Home, no needs
--- NOTE | 2025-04-02 15:43 | W.PN.ID1 ---
Date of Service
Date of Service: April 02, 2025
Today's Communication
Continue antibiotics.
Assessment / Plan
Obstructive uropathy
Bacteremia with Proteus mirabilis
- isolate resistant only to tetracycline
Complicated urinary tract infection; suspected pyelonephritis
Leukocytosis
IRISH; improved
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
Rheumatoid arthritis (on Remicade)
Hx asthma
Recommendations:
Urine culture with Proteus mirabilis. Isolate is susceptible to cefazolin.
White count overall improved
Continue cefazolin 2 g IV every 8 hours while inpatient.
At discharge, transition to cephalexin 500 mg p.o. 4 times daily, to continue until 05/13/2025
����������������������������������������������������������
Chief Complaint
-: UTI and Bacteremia
Subjective / Review of Systems
Review of Systems: No Fever, No Chills and No Abdominal Pain
Vital Signs / Physical Exam
Vital Signs
Vital Signs
Temp Pulse Resp BP Pulse Ox
98.3 F 72 16 138/71 96
04/02/25 11:30 04/02/25 11:30 04/02/25 11:30 04/02/25 11:30 04/02/25 11:30
Physical Exam
Constitutional: No Acute Distress, Comfortable and Non-toxic
Eyes: Sclera Anicteric
Cardiovascular: S1/S2; Negative S3/S4
Pulmonary: Non Labored
Gastrointestinal: Soft, Non Tender, Non Distended, Normal Bowel Sounds, No Rebound and No Guarding
Genito-Urinary: Negative Penn, Suprapubic Tenderness or CVA Tenderness
Extremities: Negative Edema, Cyanosis or Erythema
Neurological: Awake and Alert
Psychological: Calm
Objective Data
Lab Data
Lab Results
04/02/25 06:51
04/02/25 06:51
Estimated Creat Clear 58 ml/min 04/02/25 06:51
Lactic Acid Cancelled 03/29/25 20:15
Total Bilirubin 0.7 mg/dl (0.2-1.3) 03/29/25 16:27
AST 36 U/L (14-36) 03/29/25 16:27
ALT 23 U/L (0-35) 03/29/25 16:27
Alkaline Phosphatase 59 U/L (38-126) 03/29/25 16:27
Most recent labs reviewed.
Micro Results:
03/30/25 09:50 Blood Culture - Preliminary
Blood/Venous No Growth in 72 hours- Final report to follow
03/30/25 09:09 Blood Culture - Preliminary
Blood/Venous No Growth in 72 hours- Final report to follow
03/31/25 04:40 Blood Culture - Preliminary
Blood/Venous No Growth in 48 hours- Final report to follow
03/29/25 16:27 Blood Culture - Final
Blood/Venous Proteus mirabilis
Gram Stain - Final
03/29/25 16:29 Urine Culture - Final
Urine
Blood Culture Final 03/29/25-1627
Positive for Proteus species.
Performed by [employer] PCR methodology.
Proteus mirabilis
Organism 1 Proteus mirabilis
1. Proteus mirabilis
M.I.C. RX
--------- ---
Amoxicillin/Potas. Clavulanate <=8/4 S
Ampicillin <=8 S
Ampicillin/Sulbactam <=4/2 S
Aztreonam <=4 S
Cefazolin <=2 S
Ertapenem <=0.5 S
Ciprofloxacin <=0.25 S
Gentamicin <=2 S
Meropenem <=1 S
Piperacillin/Tazobactam <=8 S
Tetracycline >8 R
Tobramycin <=2 S
Trimethoprim/Sulfamethoxazole <=2/38 S
Imaging:
03/29/2025 CT abdomen/pelvis without contrast: The unenhanced liver, spleen, gallbladder and pancreas are unremarkable. The adrenal glands and kidneys are unremarkable aside from mild right hydronephrosis due to a right UVJ stone measuring 3 mm.
There is also a 1 mm nonobstructing right renal stone.. The abdominal aorta is normal caliber. There is mild atherosclerotic vascular disease. No significant lymphadenopathy is noted. Bowel loops are normal caliber. The terminal ileum and appendix
are within normal limits. There is mild diverticulosis.
--- NOTE | 2025-04-02 16:34 | W.PN.URO.CBU ---
Today's Communication / Plan
-
outpatient follow up
Assessment / Plan
-
right ureteral stone and UTI/proteus bacteremia
s/p ureteroscopy/laser litho and stent
pt stable
proteus bacteremia
plan to treat with keflex at time of discharge
pt should call to make appointment with dr charles after discharge for stent removal
call with any further questions
Diagnosis
-
Date of Service: April 02, 2025
-
Patient Diagnosis:
obstructing right ureteral stone
UTI
Post Op Day:
right ureteroscopy/laser litho and stent 03/30
Subjective
-
pt feels better
wbc declining- no fevers
minimal urinary discomfort
Objective
-
Vital Signs
Temp Pulse Resp BP Pulse Ox
98.8 F 95 16 125/75 96
04/02/25 15:59 04/02/25 15:59 04/02/25 15:59 04/02/25 15:59 04/02/25 15:59
Intake and Output
04/01/25 04/02/25 04/03/25
06:59 06:59 06:59
Intake Total 280 / 280 960 / 960
Output Total 1849
Balance -1570 / -1570 -690 / -690
Intake:
Oral fluids 280 / 280 960 / 960
Output:
Urine, Voided 1849 / 1649
Other:
Number of approximated MODERATE 8
amounts of urine
Laboratory Results
04/02/25 06:51
04/02/25 06:51
Physical Exam
-
General -no acute distress
--- NOTE | 2025-04-02 17:38 | W.PN.HOSP.TC ---
Today's Communication/Plan
-
Doing well -- follow final results of repeat blood cultures
Expecting discharge tomorrow with oral antibiotics
Assessment / Plan
Assessment / Plan
Physical Exam
General: Other (69y F in no acute distress. Not ill-appearing.)
HEENT: Moist mucous membranes
Respiratory: Clear; No Wheezes, Rales or Rhonchi
Cardiac: S1/S2 and Regular Rhythm
GI: Soft, Non Tender, Non Distended and Normal Bowel Sounds
Musculoskeletal: No Cyanosis and No Edema
Neuro: AO x 3
Assessment/Plan
69y F with PMH significant for RA and asthma who presents to ED complaining of chills and R flank pain. Patient states that her symptoms started Sunday evening. She noted shaking feeling / tremulousness - though she denies feeling cold. She
had discomfort in the R 'kidney' and associated nausea / vomiting. Patient has remained in bed since Sunday evening. She has been trying to push oral fluids - but has not been eating well. She reports some urinary urgency but no dysuria /
incontinence. No noted hematuria. No diarrhea / blood stools. No prior history of kidney stones.
Presentation with shakes and flank pain since 03/27/25
Sepsis
Complicated UTI / Pyelonephritis
Sepsis secondary to the above
R UVJ Stone with Hydronephrosis
Proteus mirabilis Bacteremia
- Patient presented with tachycardia and leukocytosis with UA indicative of infection.
- Very distal 3 mm stone on the R - no prior history per patient.
- Completed a few days of Cefepime. Now on Cefazolin -- continue Cefazolin. Initial blood cultures with Proteus, repeat blood cultures with NGTD
- At discharge, transition to cephalexin 500 mg p.o. 4 times daily, to continue until 05/13/2025
- Urology consulted for evaluation of UVJ stone s/p ureteroscopy/laser litho and stent placement on 03/29/25
- Penn has been taken out on 03/31/25
- Follow-up with Dr. Marco Johnson outpatient -- patient should call Dr. Johnson's office after discharge to arrange to urinary stent removal
IRISH secondary to obstruction
- Resolved
Hypokalemia
- Potassium replacement ordered
- Recheck BMP
Rheumatoid Arthritis
- Stable. No acute complaints at present.
- Patient cannot recall timing of her last Remicade infusion.
- Hold immunosuppressants acutely (Remicade / MTX).
Asthma without Acute Exacerbation
- Stable. Continue Symbicort. Albuterol PRN.
DVT Prophylaxis: SCDs. Heparin subq.
Code Status: Full Code
Anticipated Discharge: Within 24 hours
Subjective/Interval History
-
Date of Service: April 02, 2025
Patient was seen and examined. She denied any new symptoms or complaints.
Objective Data
-
Labs:
Laboratory Results
04/02/25
06:51
WBC 12.2 H
Hgb 10.2 L
Hct 29.0 L
Plt Count 200 D
Sodium 138
Potassium 3.3 L
Chloride 105
Carbon Dioxide 29
BUN 9
Creatinine 0.7
Glucose 136 H
Calcium 8.7
Vital Signs:
Vital Signs
Temp Pulse Resp BP Pulse Ox
98.8 F 95 16 125/75 96
04/02/25 15:59 04/02/25 15:59 04/02/25 15:59 04/02/25 15:59 04/02/25 15:59
I&O
04/01/25 04/02/25 04/03/25
06:59 06:59 06:59
Intake Total 280 / 280 960 / 960
Output Total 1850 / 1850 1650 / 1650
Balance -1570 / -1570 -690 / -690
[2025-04-02] MEDS: KCL 40 MEQ PO (17:51)
[2025-04-03] MEDS: Pyridium 100 MG PO ×3 (00:21→17:22)
[2025-04-03] MEDS: ANCEF 10 IV ×3 (02:12→17:22)
[2025-04-03 02:47] VITALS: BP 137/69
[2025-04-03 06:54] LABS: Hematocrit 27.8 % (37.0-47.0); Hemoglobin 9.8 g/dL (12.0-16.0); Mean Corp Hgb Conc. 35.3 g/dL (33.0-37.0); Mean Corpuscular Hgb 34.5 pg (27.0-31.0); Mean Corpuscular Volume 97.9 fL (81.0-99.0); Mean Platelet Volume 10.9 fL (7.4-10.4); Platelet Count 272 10^3/uL (130-400); Red Blood Cell Count 2.84 10^6/uL (4.20-5.40); Red Cell Dist. Width 13.4 % (11.5-14.5); White Blood Cell Count 12.8 10^3/uL (4.8-10.8)
[2025-04-03 07:06] LABS: Blood Urea Nitrogen 7 mg/dl (7-17); Calcium 9.1 mg/dl (8.4-10.2); Carbon Dioxide 28 mmol/L (22-30); Chloride 106 mmol/L (98-107); Estimated Creatinine Clearance 68 ml/min; Glucose 105 mg/dl (70-99); Magnesium 1.7 mg/dl (1.6-2.3); Sodium 137 mmol/L (135-145); eGFR > 60.00
[2025-04-03 07:45] VITALS: BP 138/73
--- NOTE | 2025-04-03 07:46 | VATNOTE ---
Pt c/o pain at her IV site in her right arm, asked that I restart her IV. Established a new PIV in her L arm. Pt states that that one also hurts. When asked which one hurts more she said that the new one hurt more. Both IV's left in place at this
time. Instructed patient to see which one hurts less after a period of time and then have her PCN pull out the one that is more painful.
[2025-04-03 08:13] LABS: % Basophils 0.2 % (0-2); % Eosinophils 1.2 % (0-6); % Immature Granulocytes 4.9 % (0-0.5); % Lymphocytes 33.4 % (20.5-51.1); % Monocytes 13.6 % (1.7-9.3); % Neutrophils 46.7 % (42.2-75.2); Absolute Eosinophils 0.2 10^3/uL (0-0.7); Absolute Immature Granulocytes 0.6 10^3/uL (0-0.05); Absolute Lymphocytes 4.3 10^3/uL (1.2-3.4); Absolute Monocytes 1.7 10^3/uL (0.1-0.6); Nucleated Red Blood Cells % 0 %
[2025-04-03] MEDS: SINGULAIR 10 MG PO (08:51)
[2025-04-03] MEDS: FOLVITE 1 MG PO (08:51)
[2025-04-03] MEDS: HEPARIN 5000 UNITS SC (08:52)
[2025-04-03] MEDS: FLOMAX 0.4 MG PO (08:52)
--- NOTE | 2025-04-03 10:53 | CM ---
Patient seen at bedside
IMM explained & signed. In chart
PLAN: Home, no needs
to transport
[2025-04-03 11:20] VITALS: BP 148/74
--- NOTE | 2025-04-03 11:27 | W.PN.ID1 ---
Date of Service
Date of Service: April 03, 2025
Today's Communication
Continue antibiotics.
Assessment / Plan
Obstructive uropathy
Bacteremia with Proteus mirabilis
- isolate resistant only to tetracycline
Complicated urinary tract infection; suspected pyelonephritis
Leukocytosis
IRISH; improved
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
Rheumatoid arthritis (on Remicade)
Hx asthma
Recommendations:
Urine culture with Proteus mirabilis. Isolate is susceptible to cefazolin.
White count overall improved
Continue cefazolin 2 g IV every 8 hours while inpatient.
At discharge, transition to cephalexin 500 mg p.o. 4 times daily, to continue until 05/13/2025
����������������������������������������������������������
Chief Complaint
-: UTI and Bacteremia
Subjective / Review of Systems
Review of Systems: No Fever and No Chills
Vital Signs / Physical Exam
Vital Signs
Vital Signs
Temp Pulse Resp BP Pulse Ox
98.0 F 79 16 148/74 95
04/03/25 11:20 04/03/25 11:20 04/03/25 11:20 04/03/25 11:20 04/03/25 11:20
Physical Exam
Constitutional: No Acute Distress, Comfortable and Non-toxic
Eyes: Sclera Anicteric
Pulmonary: Non Labored
Gastrointestinal: Soft and Non Distended
Genito-Urinary: Negative Penn, Suprapubic Tenderness or CVA Tenderness
Extremities: Negative Edema, Cyanosis or Erythema
Neurological: Awake and Alert
Psychological: Calm
Objective Data
Lab Data
Lab Results
04/03/25 06:21
04/03/25 06:21
Estimated Creat Clear 68 ml/min 04/03/25 06:21
Lactic Acid Cancelled 03/29/25 20:15
Total Bilirubin 0.7 mg/dl (0.2-1.3) 03/29/25 16:27
AST 36 U/L (14-36) 03/29/25 16:27
ALT 23 U/L (0-35) 03/29/25 16:27
Alkaline Phosphatase 59 U/L (38-126) 03/29/25 16:27
Most recent labs reviewed.
Micro Results:
03/30/25 09:50 Blood Culture - Preliminary
Blood/Venous No Growth in 4 days- Final report to follow
03/30/25 09:09 Blood Culture - Preliminary
Blood/Venous No Growth in 4 days- Final report to follow
03/31/25 04:40 Blood Culture - Preliminary
Blood/Venous No Growth in 72 hours- Final report to follow
03/29/25 16:27 Blood Culture - Final
Blood/Venous Proteus mirabilis
Gram Stain - Final
03/29/25 16:29 Urine Culture - Final
Urine
Blood Culture Final 03/29/25-1627
Positive for Proteus species.
Performed by BIO[employer]RE PCR methodology.
Proteus mirabilis
Organism 1 Proteus mirabilis
1. Proteus mirabilis
M.I.C. RX
--------- ---
Amoxicillin/Potas. Clavulanate <=8/4 S
Ampicillin <=8 S
Ampicillin/Sulbactam <=4/2 S
Aztreonam <=4 S
Cefazolin <=2 S
Ertapenem <=0.5 S
Ciprofloxacin <=0.25 S
Gentamicin <=2 S
Meropenem <=1 S
Piperacillin/Tazobactam <=8 S
Tetracycline >8 R
Tobramycin <=2 S
Trimethoprim/Sulfamethoxazole <=2/38 S
Imaging:
03/29/2025 CT abdomen/pelvis without contrast: The unenhanced liver, spleen, gallbladder and pancreas are unremarkable. The adrenal glands and kidneys are unremarkable aside from mild right hydronephrosis due to a right UVJ stone measuring 3 mm.
There is also a 1 mm nonobstructing right renal stone.. The abdominal aorta is normal caliber. There is mild atherosclerotic vascular disease. No significant lymphadenopathy is noted. Bowel loops are normal caliber. The terminal ileum and appendix
are within normal limits. There is mild diverticulosis.
[2025-04-03 15:00] VITALS: BP 150/72
--- NOTE | 2025-04-03 15:41 | W.PN.HOSP.TC ---
Today's Communication/Plan
-
Discharge today
Assessment / Plan
Assessment / Plan
Physical Exam
General: Other (69y F in no acute distress. Not ill-appearing.)
HEENT: Moist mucous membranes
Respiratory: Clear; No Wheezes, Rales or Rhonchi
Cardiac: S1/S2 and Regular Rhythm
GI: Soft, Non Tender, Non Distended and Normal Bowel Sounds
Musculoskeletal: No Cyanosis and No Edema
Neuro: AO x 3
Assessment/Plan
69y F with PMH significant for RA and asthma who presents to ED complaining of chills and R flank pain. Patient states that her symptoms started Sunday evening. She noted shaking feeling / tremulousness - though she denies feeling cold. She
had discomfort in the R 'kidney' and associated nausea / vomiting. Patient has remained in bed since Sunday evening. She has been trying to push oral fluids - but has not been eating well. She reports some urinary urgency but no dysuria /
incontinence. No noted hematuria. No diarrhea / blood stools. No prior history of kidney stones.
Presentation with shakes and flank pain since 03/27/25
Sepsis
Complicated UTI / Pyelonephritis
Sepsis secondary to the above
R UVJ Stone with Hydronephrosis
Proteus mirabilis Bacteremia
- Patient presented with tachycardia and leukocytosis with UA indicative of infection.
- Very distal 3 mm stone on the R - no prior history per patient.
- Completed a few days of Cefepime. Now on Cefazolin -- continue Cefazolin while inpatient. Initial blood cultures with Proteus, repeat blood cultures with NGTD
- At discharge, transition to cephalexin 500 mg p.o. 4 times daily, to continue until 05/13/2025
- Urology consulted for evaluation of UVJ stone s/p ureteroscopy/laser litho and stent placement on 03/29/25
- Penn has been taken out on 03/31/25
- Follow-up with Dr. Marco Johnson outpatient -- patient should call Dr. Johnson's office after discharge to arrange to urinary stent removal
IRISH secondary to obstruction
- Resolved
Hypokalemia
- Potassium replacement ordered
- Recheck BMP
Rheumatoid Arthritis
- Stable. No acute complaints at present.
- Patient cannot recall timing of her last Remicade infusion.
- Hold immunosuppressants acutely (Remicade / MTX).
Asthma without Acute Exacerbation
- Stable. Continue Symbicort. Albuterol PRN.
DVT Prophylaxis: SCDs. Heparin subq.
Code Status: Full Code
More than 30 minutes spent in discharge including
Final examination of the patient
Summarizing hospital stay
Instructions for continuing care to all relevant caregivers
Preparation of discharge records, prescriptions, and referral forms
Total time spent (in minutes): 36
Anticipated Discharge: Today
Subjective/Interval History
-
Date of Service: April 03, 2025
Patient was seen and examined. She denied any symptoms or complaints.
Objective Data
-
Labs:
Laboratory Results
04/03/25
06:21
WBC 12.8 H
Hgb 9.8 L
Hct 27.8 L
Plt Count 272 D
Sodium 137
Potassium 4.0
Chloride 106
Carbon Dioxide 28
BUN 7
Creatinine 0.6
Glucose 105 H
Calcium 9.1
Vital Signs:
Vital Signs
Temp Pulse Resp BP Pulse Ox
98.0 F 79 16 148/74 95
04/03/25 11:20 04/03/25 11:20 04/03/25 11:20 04/03/25 11:20 04/03/25 11:20
I&O
04/02/25 04/03/25 04/04/25
06:59 06:59 06:59
Intake Total 960 / 960 480 / 480
Output Total 1650 / 1650
Balance -690 / -690 480 / 480
--- NOTE | 2025-04-03 17:24 | W.DCSUMMARY ---
Discharge Summary
Discharge Data
Date of Admission: 03/29/25
Date of Discharge: 04/03/25
Total time spent discharging patient (in min): 36
-
Pending Results: No
Hospital Course
69 y/o female with past medical history of rheumatoid arthritis and asthma, who presented with chills and right flank pain. Patient was started on intravenous antibiotics for pyelonephritis. Patient was found to have nephrolithiasis and urology was
consulted. On 03/30/25, patient had cystoscopy, right ureteroscopy, laser lithotripsy and stone extraction, and stent placement for obstructing right ureteral stone and urinary tract infection. Patient was noted to have bacteremia and her
antibiotics were broadened to Cefepime. Infectious Disease was consulted. Patient's Penn Catheter was removed. Patient's blood culture was determined to grow Proteus mirabilis. Patient's antibiotics were later able to be narrowed to Cefazolin, and
then on discharge, to Cephalexin. Patient's symptoms improved significantly and she was stable for discharge home.
Discharge Plan
-
Patient Disposition: Home (Routine Discharge)
Discharge Diagnosis/Procedures: Presentation with shakes and flank pain since 03/27/25
Sepsis
Immunosuppression Secondary to Medications
Complicated UTI / Pyelonephritis
Sepsis secondary to the above
R UVJ Stone with Hydronephrosis
Proteus mirabilis Bacteremia
Acute Kidney Injury secondary to obstruction - Resolved
Hypokalemia
Rheumatoid Arthritis (on Remicade)
Asthma without Acute Exacerbation
CT Abdomen Pelvis (as per radiologist's report):
'FINDINGS:
Lung Bases: There is mild right lower lobe atelectasis versus scarring.
Bone: Osseous structures of the abdomen and pelvis show a scoliosis and mild degenerative disease.
There is a tiny pericardial effusion versus pericardial thickening.
Abdomen and pelvis: The unenhanced liver, spleen, gallbladder and pancreas are unremarkable. The adrenal glands and kidneys are unremarkable aside from mild right hydronephrosis due to a right UVJ stone measuring 3 mm. There is also a 1 mm
nonobstructing right renal stone.. The abdominal aorta is normal caliber. There is mild atherosclerotic vascular disease. No significant lymphadenopathy is noted. Bowel loops are normal caliber. The terminal ileum and appendix are within normal
limits. There is mild diverticulosis.
No free fluid is noted. The urinary bladder is unremarkable.
IMPRESSION: Mild right hydronephrosis secondary to a 3 mm right UVJ stone.
1 mm nonobstructing right renal stone.
Mild diverticulosis.'
Condition: Good
Diet: As tolerated
Activity: As tolerated
Blood Work: CBC, BMP and Magnesium check with your primary care provider's office in 3 to 4 days.
Activity Restrictions/Additional Instructions:
Please call to make appointment with Dr. Marco Johnson (urologist) after discharge for stent removal.
Call your professor of astronomy in the next 2 to 3 days and ask your professor of astronomy when you can resume your rheumatoid arthritis medications (Methotrexate, Remicade) given you have an infection being treated until the end of April 2025.
Referrals:
Pramod Banegas MD [Family Provider, Family Practice] - in less than 1 week
Referral Note: CBC, BMP and Magnesium check. Hospital Follow-Up
Marco Johnson Jr., MD [Active, Urology] - in one to two weeks
Referral Note: Hospital Follow-Up. Needs stent removal.
Additional Discharge Medication Instructions: Cephalexin is 500 mg orally 4 times daily, to continue until 05/13/2025.
Tamsulosin is a new medication.
Remicade, Meloxicam, and Methotrexate are on hold given your infection -- contact your professor of astronomy [employer] in the next 2 to 3 days, let them know you are being treated for infection and ask when you can resume these 3 medications for your rheumatoid
arthritis.
Prescriptions:
New
cephalexin 500 mg tablet
500 mg PO QID 41 Days Qty: 164 0RF
Rx Instructions:
Cephalexin 500 mg P.O. 4 times daily, to continue until 05/13/2025
tamsulosin 0.4 mg Capsule
0.4 mg PO DAILY Qty: 30 1RF
Continued
budesonide-formoterol [Symbicort] 1 PUFF HFA aerosol inhaler
2 puff inhalation R BID
Singulair
10 mg PO DAILY
FOLic ACID
1 mg PO DAILY
Proventil
90 mcg inhalation PRN PRN (Reason: dyspnea)
Ophelia-D 12 Hour Tablet
1 tab PO BID
Centrum Silver Tablet
1 tab PO DAILY
Acidophilus
1,200 units PO TID
Bromolin
1 tab PO TID
B Complex
1 tab PO HS
Black Patrick Supplement
1 cap PO DAILY
Held
MELOXICAM
15 mg PO DAILY
Hold Instructions: Resume on 04/17/25. Ask your outpatient physicians/professor of astronomy about when you can resume this medication.
infliximab [Remicade] 100 MG/10 ML recon soln
100 mg IV .EVERY 6 WKS
Hold Instructions: Resume on 05/08/25. Ask your outpatient physicians/professor of astronomy about when you can resume this medication.
Patient Comments:
q 6 weeks
METHOTREXATE
75 mg PO WEEKLY
Hold Instructions: Resume on 05/07/25. Ask your outpatient physicians/professor of astronomy about when you can resume this medication.
Patient Comments:
3 pills once a week sunday
Discharge Orders:
Discharge Patient (As Directed); Ordered 04/03/25
Ordered By: Zachariah Montana
Discharge Date and Time
Discharge Date/Time: 04/03/25 18:39
Print Language: TUVALUAN
[2025-04-03 18:30] VITALS: BP 142/68
== END 2025-04-03 18:39 | disposition home or self-care (01) | DRG 854 ==
LOC: 3 WEST ACU 21:55
PROVIDERS: ADMITTING PHYSICIAN Hospitalist; ATTENDING PHYSICIAN Hospitalist; CONSULT PHYSICIAN Internal Medicine Infectious Disease; CONSULT PHYSICIAN Specialist; EMERGENCY PHYSICIAN Emergency Medicine; FAMILY PHYSICIAN Family Medicine
PROC: 0TC68ZZ Extirpation of Matter from Right Ureter, Via Natural or Artificial Opening Endoscopic (ICD-10-PCS; 2025-03-30)
PROC: 0T768DZ Dilation of Right Ureter with Intraluminal Device, Via Natural or Artificial Opening Endoscopic (ICD-10-PCS; 2025-03-30)
DX: A41.9 Sepsis, unspecified organism (principal); N12 Tubulo-interstitial nephritis, not specified as acute or chronic; N13.6 Pyonephrosis; M06.9 Rheumatoid arthritis, unspecified; Z87.891 Personal history of nicotine dependence; Z79.620 Long term (current) use of immunosuppressive biologic
CPT/HCPCS: 74176; 74420; 76000; 80048; 80053; 81003; 81015; 82040; 83605; 83735; 85025; 85027; 87040; 87077; 87086; 87154; 87186; 87205; 94640; 96361; 96374; 99285; C2617